=== PATIENT | male | born 2000 | race Caucasian/White ===

== ENCOUNTER 2021-05-03 09:37 | Emergency (ER) | payer OTHER ==
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
[2021-05-03] MEDS ORDERED: IBUPROFEN 600 MG TABLET PO STA (10:24)
[2021-05-03] MEDS ORDERED: ACETAMINOPHEN 325 MG TABLET PO STA (10:24)
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
[2021-05-03 13:08] VITALS: BP 135/70
== END 2021-05-03 13:07 | disposition home or self-care (01) ==
LOC: ED 09:37
DX: S06.0X0A Concussion without loss of consciousness, initial encounter (principal); G44.319 Acute post-traumatic headache, not intractable; M54.2 Cervicalgia; V47.1XXA Car passenger injured in collision with fixed or stationary object in nontraffic accident, initial encounter; Y92.138 Other place on military base as the place of occurrence of the external cause
CPT/HCPCS: 70450; 72125; 99282; 99284; A9270